=== PATIENT | male | born 1985 | race African-American/Black ===

== ENCOUNTER 2020-10-20 23:26 | Emergency (ER) | payer OTHER, SELFPAY ==
[~2020-10-20] VITALS: Ht 175.3 cm; Wt 104.3 kg
--- NOTE | 2020-10-20 23:42 | Emergency Room Report ---
History of Present Illness General Chief Complaint: Laceration Source: Patient Present Illness HPI 35-year-old -[place] male, [id number], presents emergency department after getting a laceration from a "siobhan nail". Laceration happened prior to arrival. Minimal blood loss on scene. Tetanus status is unknown. Denies numbness, tingling, fever, chills, nausea, vomiting, diarrhea or any other symptoms. The patient's symptoms were gradual onset, severity was moderate, duration since 1 hour. Quality: Mild bleeding Past medical history: Denies Past surgical history: Denies Smoking: Occasional Alcohol use: Occasional Drug use: Denies Review of systems: CONST: No fevers or chills, No night sweats PULMONARY: No productive cough, No shortness of breath CARDIAC: No chest pain, No palpitations GI: No vomiting, No diarrhea , No melena_or_BRBPR : No dysuria, No hematuria, No discharge NEURO: No new_focal_weakness_or_numbness, No confusion, No vision changes 14 point Review of Systems is otherwise negative except per HPI Physical Exam: GENERAL: Awake_alert_ nontoxic, no acute distress Spo2 95% on RA -normal EYES: Extraocular muscles are intact. Conjunctivae clear. Lids without swelling ENT: External nose and ear normal_in_appearance. Oropharynx clear. Head_atraumatic, Moist_oral_mucosa NECK: No JVD. No meningismus. No thyromegaly. Supple. Trachea midline RESP: Normal respiratory effort. Symmetric rise. No stridor. Clear_to_auscultation_No_rales_No_wheezes CARDIAC: Regular rate and regular rhytm. No_significant pedal edema. ABDOMEN: Soft. Nondistended. Nontender_No_rebound_or_guarding. MSK: Normal muscle tone, without rigidity. Extremities without asymmetric deformity or swelling. SKIN: Simple linear laceration to the medial left arm measuring 5 cm. No exposed tendon or bone. No arterial bleeding NEUROLOGIC: Alert, oriented x3. Motor_and_sensation_grossly_intact. No truncal ataxia. Gait_normal Psych: Normal mood and affect, normal judgment and insight - COORDINATION OF CARE Case was discussed with: Patient Laceration Repair by me: Anesthesia: 1% lidocaine locally Location: Left medial arm Tendon/Joint/Nerves: No injury Foreign body: None detected after copious irrigation and exploration Technique: Simple Interrupted Sutures Complexity: No subcutaneous sutures/mucosal repair/edge excision Post Closure Length: 5 cm Wound is hemostastic No evidence of compartment syndrome, neurologic injury, vascular injury, open joint, tendon laceration, or foreign body. Medical Decision Making/Plan: Differential diagnosis: Abrasion versus laceration versus contusion, doubt abscess, doubt fracture, doubt arterial bleeding, doubt foreign body 35-year-old male presents with simple linear laceration obtained prior to arrival. Tdap was updated here in the emergency department. Copious irrigation was performed with no visualization of foreign body or arterial bleeding. Laceration repair was performed at bedside. Patient tolerated the procedure well without any complications. No indication for antibiotics at this time. Recommend 2-day wound check and removal of sutures within 7 to 10 days. Recommend avoid heavy lifting to the left arm until fully healed. Wound care instructions were provided. Pertinent results reviewed with the patient. I educated the patient on the current treatment plan including the risks, benefits, and alternatives. I also discussed the extent and limitations of the current evaluation. The patient expressed understanding and agreement with plan. I recommended PMD follow-up within 1-2 days. Also advised that the patient return to the Emergency Department as soon as possible if they experience any new, persistent, or wors ening symptoms. 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 Physical Exam Vital Signs Date Time Temp Pulse Resp B/P (MAP) Pulse Ox O2 Delivery O2 Flow Rate FiO2 10/20/20 23:34 98.2 77 16 136/81 (99) 100 Room Air Sp02 EP Interpretation: reviewed, normal Medical Decision Making Diagnostic Impression: Primary Impression: Laceration Last Vital Signs Date Time Temp Pulse Resp B/P (MAP) Pulse Ox O2 Delivery O2 Flow Rate FiO2 10/20/20 23:34 98.2 77 16 136/81 (99) 100 Room Air Disposition: HOME, SELF-CARE Condition: Stable Departure Forms: Return to Work Return to Work in (Days): 3 Return to Work Date: Oct 23, 2020 Patient Instructions: Laceration Care, Adult Additional Instructions: 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 Return sooner if you develop fever or signs of infection. Sutures will need to be removed in 7 to 10 days. Avoid heavy lifting until fully healed. Follow-up with your doctor sooner if your condition requires a more timely clinical reevaluation. Return to the emergency department immediately if you feel that your condition i s worsening or if you have any new or concerning symptoms. Review your discharge instructions and take any prescriptions given as instructed. [facility] PROVIDES FREE OR LOW-COST HEALTH SERVICES TO PEOPLE WHO CAN SHOW PROOF THAT THEY LIVE IN [facility]. TO FIND MORE CLINICS PARTNERED WITH [facility] TO PROVIDE SERVICE, PLEASE CALL . Sandra Win D.O. Oct 20, 2020 23:42
[2020-10-20] MEDS ORDERED: Lidocaine 1% Plain 30 ml INJ ONE (23:45)
[2020-10-20] MEDS ORDERED: Tetanus/Diptheria/Pertussis IM ONE (23:45)
[2020-10-21 00:07] VITALS: BP 136/81
== END 2020-10-21 00:09 | disposition home or self-care (01) ==
LOC: EMR 23:44
DX: S41.112A Laceration without foreign body of left upper arm, initial encounter (principal); Z23 Encounter for immunization; W45.0XXA Nail entering through skin, initial encounter; Y92.9 Unspecified place or not applicable
CPT/HCPCS: 12002; 90471; 90715; J2001; Z7502; 99282

== ENCOUNTER 2020-11-01 12:01 | Emergency (ER) | payer OTHER ==
[~2020-11-01] VITALS: Ht 175.3 cm; Wt 99.8 kg
[2020-11-01 12:38] VITALS: BP 130/80
--- NOTE | 2020-11-01 12:38 | Emergency Room Report ---
History of Present Illness General Chief Complaint: Suture removal Source: Patient Present Illness HPI 35-year-old male presents for suture removal left bicep no complaints Allergies: Coded Allergies: No Known Allergies (Unverified , 10/20/20) COVID-19 Screening Contact w/high risk pt: No Experienced COVID-19 symptoms?: No Review of Systems All Other Systems: negative except mentioned in HPI Physical Exam General Appearance: well appearing, no apparent distress Head: normocephalic, atraumatic ENT: hearing grossly normal, normal voice Neck: full range of motion, supple Respiratory: no respiratory distress, speaking full sentences Musculoskeletal: other - Left bicep [address], wounds clean dry intact Neurologic: alert, normal gait Psychiatric: mood/affect normal Skin: no rash Medical Decision Making Diagnostic Impression: Primary Impression: Visit for suture removal ER Course 5 sutures removed disposition home with return precautions Disposition: HOME, SELF-CARE Condition: Stable Referrals: [facility]ERR[facility] (PCP) [facility] Patient Instructions: Suture Removal, Care After Additional Instructions: The patient was provided with discharge instructions, notified to follow-up with a primary care doctor and or specialist in the next 24-48 hours, and to return to the ED if they have worsening of their symptoms. Please note that this report is being documented using [employer] technology. This can lead to erroneous entry secondary to incorrect interpretation by the dictating instrument. Keanu Justin MD Nov 01, 2020 12:38
--- NOTE | 2020-11-01 12:39 | NUR ---
sutures removed by dr romeo discharged home with instruction
== END 2020-11-01 12:45 | disposition home or self-care (01) ==
LOC: EMR 12:18
DX: Z48.02 Encounter for removal of sutures (principal)
CPT/HCPCS: 99281